=== PATIENT | male | born 1975 | race Caucasian/White ===

== ENCOUNTER → 2016-11-22 | Outpatient (CLI) | payer OTHER ==
[~2016-11-22] VITALS: Ht 188 cm; Wt 115.2 kg
[~2016-11-22] MED LIST: MORPHINE SULFATE 4 MG/ML DISP.SYRIN. IV ONE
--- NOTE | 2016-11-22 11:39 | RAD ---
EXAM: Nuclear hepatobiliary scan with ejection fraction. HISTORY: Epigastric pain and nausea FINDINGS: Serial static images are obtained of the liver and biliary system following IV administration of 5.4 mCi of technetium-99m Choletec. There is prompt hepatic clearance of tracer from the blood pool. There is homogeneous distribution throughout the liver. There is clearance of activity into the biliary tree and small bowel, but the gallbladder did not fill through 60 minutes. 4 mg morphine were administered intravenously. Activity then filled gallbladder. Some activity in the left upper quadrant suggests reflux into the stomach. IMPRESSION: 1. The gallbladder did not fill through 60 minutes, but did fill after intravenous morphine. No evidence of acute cholecystitis. 2. Findings suggesting biliary-gastric reflux.
== END | disposition home or self-care (01) ==
LOC: NM 08:11
PROVIDERS: ATTEND Surgery
DX: R10.13 Epigastric pain (principal); R11.2 Nausea with vomiting, unspecified
CPT/HCPCS: 78226; 96374; 96375; A9537; J2270

== ENCOUNTER 2016-12-02 09:03 | Day surgery (SDC) | payer OTHER ==
[~2016-12-02 09:03] MED LIST changes: +FENTANYL PF 100 MCG/2 ML VIAL. IV PRN; +HYDROMORPHONE 2 MG/ML VIAL. IV PRN; +IV RINGERS,LACTATED 1000ML 1,000 ML IV SCH; +LIDOCAINE 1% 1 ML SYRINGE. ID PRN; +MORPHINE SULFATE 2 MG/ML DISP.SYRIN. IV PRN; -MORPHINE SULFATE 4 MG/ML DISP.SYRIN. IV ONE; +ONDA4TAB7 PO; +ONDANSETRON PF 4 MG/2 ML VIAL. IV PRN; +PROCHLORPERAZINE 10 MG/2 ML VIAL. IV PRN
[2016-12-02] MEDS ORDERED: CEFAZOLIN 2GM PREMIX 50 ML IV ONE (09:59)
[2016-12-02] MEDS ORDERED: ACETAMINOPHEN INTRAVENOUS 100 ML IV ONE (10:00)
[2016-12-02] MEDS ORDERED: CEFAZOLIN 2GM PREMIX 50 ML IV PRN (10:30)
[2016-12-02] MEDS ORDERED: ROCURONIUM 50 MG/5 ML VIAL. ONE (10:41)
[2016-12-02] MEDS ORDERED: FENTANYL PF 250 MCG/5 ML VIAL. ONE (10:41)
[2016-12-02] MEDS ORDERED: BUPIVACAINE-EPI 0.25%-1:200000 MPF 30 ML VIAL. INJ ONE (11:27)
[2016-12-02] MEDS ORDERED: DESFLURANE 61 TO 120 MINUTES IH ONE (11:32)
[2016-12-02] MEDS ORDERED: PROPOFOL 20 ML IV ONE (11:32)
[2016-12-02] MEDS ORDERED: DEXAMETHASONE SOD PHOS 20 MG/5 ML VIAL. ONE (11:32)
[2016-12-02] MEDS ORDERED: ONDANSETRON PF 4 MG/2 ML VIAL. ONE (11:32)
[2016-12-02] MEDS ORDERED: LIDOCAINE 2% 100 MG/5 ML DISP.SYRIN. ONE (11:32)
[2016-12-02] MEDS ORDERED: GLYCOPYRROLATE 1 MG/5 ML VIAL. ONE (11:34)
[2016-12-02] MEDS ORDERED: NEOSTIGMINE METHYLSULFATE 5 MG/5 ML SYRINGE. ONE (11:34)
--- NOTE | 2016-12-02 11:50 | PDOC ---
BRIEF OPERATIVE NOTE Date: Dec 02, 2016 Pre-Op Diagnosis Chronic cholecystitis Post-Op Diagnosis Same Procedure Performed L/S Cholecystectomy Surgeon Nick Anesthesia Type: General Blood Loss 10ml Specimens Obtained Gallbladder Findings As above Complications None MITUL PRUETT MD Dec 02, 2016 11:50
--- NOTE | 2016-12-02 11:52 | DISCH ---
DISCHARGE INSTRUCTIONS Condition on Discharge Condition on Discharge: Stable Activity After Discharge Activity Instructions for Disc: Avoid exertion Other activity instructions: No lifting >20lbs for 2 weeks Lifting Instructions after Dis: No heavy lifting Diet after Discharge Diet after Discharge: Low Fat Wound Incision Care Other wound/incision instructi: Tessa shower in 24 hours Contacting the after DC Call your doctor for: If your condition worsens Follow-Up Follow up with: Dr Pruett in 2 weeks MITUL PRUETT MD Dec 02, 2016 11:52
[2016-12-02] MEDS ORDERED: OXYC-323 PO (12:51)
[2016-12-02] MEDS ORDERED: OXYCODONE/APAP 5/325 TABLET. PO ONE (13:00)
[2016-12-02 13:40] VITALS: BP 117/63
--- NOTE | 2016-12-02 17:48 | OP ---
DATE OF SURGERY: 12/02/2016 PREOPERATIVE DIAGNOSES: Cholelithiasis, chronic cholecystitis. POSTOPERATIVE DIAGNOSES: Cholelithiasis, chronic cholecystitis. PROCEDURE: Laparoscopic cholecystectomy. SURGEON: Hernán Pruett MD INDICATIONS: The patient is a 41-year-old gentleman who has complained of right upper quadrant abdominal pain and postprandial nausea. Ultrasound showed small stones. Procedure of laparoscopic cholecystectomy was explained to the patient in detail. Risks, benefits were also discussed including bleeding, infection, injury to intra-abdominal contents, possibly sustaining further open operations. Alternatives of this procedure were also discussed with the patient who seemed to understand and gave verbal and written consent to have the procedure performed. DESCRIPTION OF PROCEDURE: The patient was taken to the operating room and placed in the supine position. General anesthesia was initiated. Once the patient was asleep and intubated, his abdomen was prepped and draped in usual sterile fashion using ChloraPrep. An area just below the umbilicus was injected 0.25% Marcaine with epinephrine. Incision was made with an 11 blade scalpel and a Veress needle was placed within the abdomen. Pneumoperitoneum was achieved. Once this was complete, an 11 mm port was placed and a 5 mm camera was placed within the abdomen. Abdomen was inspected. No other abnormalities were noted. At this point, three 5 mm ports were placed under direct visualization, 1 in the epigastrium, 2 in the right upper quadrant. The dome of the gallbladder was grasped and retracted cephalad. The infundibulum of the gallbladder was grasped and retracted laterally exposing the triangle of Calot. Adherent tissues of the triangle were taken down with blunt and sharp dissection exposing the cystic duct and cystic artery. Both were doubly clipped and transected. The gallbladder was taken off the liver with hook electrocautery, placed in EndoCatch bag and removed from the umbilicus. The right upper quadrant was irrigated and suctioned dry. Hemostasis seemed to be appropriate and the pneumoperitoneum was reduced. All ports were removed. The fascial defect at the umbilicus closed with [id number] 0 Vicryl suture and the skin was reapproximated at all port sites with 4-0 subcuticular Monocryl. Mastisol, Steri-Strips and Band-Aids were applied as dressings. The patient was awakened, extubated in the operating room, taken to recovery in stable condition. All sponge and instrument counts listed as correct. Estimated blood loss 10 mL. HERNÁN PRUETT MD DR: MANDIE/negar JOB#: [id number] / [id number] OSMAR Cagle MD
--- NOTE | 2016-12-03 15:28 | PATHOLOGY ---
PATHOLOGY REPORT * * * * * * * * FINAL DIAGNOSIS: Gallbladder, laparoscopic cholecystectomy: - Cholelithiasis. - Chronic cholecystitis. COMMENT: There is no evidence of malignancy. (JPM:kayla; d/t: 12/03/2016) REPORT ELECTRONICALLY SIGNED BY: Luis Carlos Araujo M.D. DATE/TIME: 12/03/2016 15:27 * * * * * * * * GROSS PATHOLOGY: Received in formalin labeled "Jaun Peck gallbladder with contents," is a 9.8 x 3.2 x 2.8 cm, intact gallbladder with pink-steinberg, hemorrhagic, and wrinkled serosal surfaces. Opening the gallbladder reveals light green to bright red and velvety mucosa and an average wall thickness of 0.2 cm. Three yellow-green, spherical, and multinodular calculi ranging from 1.2-1.5 cm in greatest dimension are present and no masses are noted grossly. Relay Record Clerk sections from the body and fundus are submitted along with the proximal margin in cassette A1. (TTL; 12/02/2016) INITIAL CPT CODE(S): A; 51855 Professional services performed [place] [employer] [place] [address] Technical services performed by [employer] at [address] [place] [address], [facility] [address] [address]. SPECIMEN(S) RECEIVED: A.Gallbladder and contents CLINICAL HISTORY: Biliary dyskinesia PATIENT: JAUN PECK /AGE: 906/06/1975 (Age: 41) PATIENT #: [id number] ALT CASE #: SPECIMEN COLLECTION DATE: 12/02/2016 SPECIMEN RECEIVED DATE: 12/02/2016 [facility] - [address] [place] [address] - PHONE: [phone] * * * END OF REPORT * * *
== END 2016-12-02 13:54 | disposition home or self-care (01) ==
LOC: SURG 09:03
PROVIDERS: ATTEND Surgery
DX: K80.10 Calculus of gallbladder with chronic cholecystitis without obstruction (principal); Z87.39 Personal history of other diseases of the musculoskeletal system and connective tissue
CPT/HCPCS: 47562; 88304; C1782; J0131; J0690; J1100; J2405; J2704; J2710; J3010; J3490; J7030; J7120